=== PATIENT | female | born 1965 | race Caucasian/White ===

== ENCOUNTER 2024-10-16 20:17 | Emergency (ER) | payer SELFPAY ==
[~2024-10-16] VITALS: Ht 160 cm; Wt 104.0 kg
--- NOTE | 2024-10-16 20:29 | ED.PDOC ---
General HPI Comments 58 y.o female presents to the ED for a chief complaint of pelvic pain radiating to her flank region associated with nausea, vomiting, chills, fever, urgency and a generalized headache that started 2 days ago. Patient reports pain is sharp, worsened today with some alleviation after taking a [place] her friend gave her. at this time, post pain medication, patient's pain rate is at 4/10 but without was at a 9/10 on the pain scale. patient denies any hematuria, dysuria,bloody stool, vaginal bleeding or discharge. Time Seen by MD: 20:21 Reviewed notes: Nurses Notes, Medications, Allergies Allergies: Coded Allergies: NO KNOWN ALLERGIES (Unverified , 10/16/24) Information Source: Patient Mode of Arrival: Ambulatory Severity: Moderate Timing: Days (2) Duration: Since onset Onset: Spontaneous Symptoms: Urgency History of: None Location: (R) Flank Modifying factors: None associated signs and symptoms: Fever, Abdominal Pain, Nausea, Vomiting, Flank Pain Past Medical History PAST MEDICAL HISTORY: Denies Surgical History: , Tubal Ligation NUCLEAR MEDICAL TECHNOLOGIST History: No Pertinent NUCLEAR MEDICAL TECHNOLOGIST History Family History Family History: Family hx of DM, Family hx of Cancer, Family hx of heart damaris, Family hx of HTN Social History Smoker: Quit Less Than 1 Year, Cigarettes Alcohol: Occasionally Drugs: Marijuana Lives In: Home Constitutional: reports: chills, fever; denies: diaphoresis, fatigue, malaise, sweats, weakness, others EENTM: denies: blurred vision, double vision, ear bleeding, ear discharge, ear drainage, ear pain, ear ringing, eye pain, eye redness, hearing loss, mouth pain, mouth swelling, nasal discharge, nose bleeding, nose congestion, nose pain, photophobia, tearing, throat pain, throat swelling, voice changes, others Respiratory: denies: cough, hemoptysis, orthopnea, SOB at rest, shortness of breath, SOB with excertion, stridor, wheezing, others Cardiovascular: denies: chest pain, dizzy spells, diaphoresis, Dyspnea on exertion, edema, irregular heart beat, left arm pain, lightheadedness, palpitations, PND, syncope, others Gastrointestinal: reports: nausea, vomiting; denies: abdomen distended, abdominal pain, blood streaked bowels, constipated, diarrhea, dysphagia, diffic ulty swallowing, hematemesis, melena, poor appetite, poor fluid intake, rectal bleeding, rectal pain, others Genitourinary: reports: flank pain, pain, urgency; denies: abnormal vagina bleeding, burning, dyspareunia, dysuria, frequency, hematuria, incontinence, , vagina discharge, others Neurological: reports: headache; denies: dizziness, fainting, left sided numbness, left sided weakness, numbness, paresthesia, pre-existing deficit, right sided numbness, right sided weakness, seizure, speech problems, tingling, tremors, weakness, others Musculoskeletal: denies: back pain, gout, joint pain, joint swelling, muscle pain, muscle stiffness, neck pain, others Integumetry: denies: bruises, change in color, change in hair/nails, dryness, laceration, lesions, lumps, rash, wounds, others Allergic/Immunocompromised: denies: Difficulty Healing, Frequent Infections, Hives, Itching, others Hematologic/Lymphatic: denies: anemia, blood clots, easy bleeding, easy bruising, swollen glands, others Endocrine: denies: excessive hunger, excessive sweating, excessive thirst, excessive urination, flushing, intolerance to cold, intolerance to heat, unexplained weight gain, unexplained weight loss, others Psychiatric: denies: anxiety, bipolar disorder, depression, hopeless, panic disorder, schizophrenia, sleepless, suicidal, others All Other Systems: Reviewed and Negative Physical Exam General Appearance: Mild Distress HEENT: Normal ENT Inspection, Pharynx Normal, TMs Normal Neck: Full Range of Motion, Non-Tender, Normal, Normal Inspection Respiratory: Chest Non-Tender, Lungs Clear, No Accessory Muscle Use, No Respiratory Distress, Normal Breath Sounds Cardiovascular: No Edema, No JVD, No Murmur, No Gallop, Normal Peripheral Pulses, Regular Rate/Rhythm Breast Exam: Deferred Gastrointestinal: No Organomegaly, No Pulsatile Mass, Normal Bowel Sounds, Soft, Suprapubic, Tenderness Genitalia: Deferred Pelvic: Deferred Rectal: Deferred Extremities: No calf tenderness, Normal capillary refill, Normal inspection, No rmal range of motion, Non-tender, No pedal edema Musculoskeletal : Apperance: Normal Neurologic: Alert, 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 Was a procedure done?: No Differential Diagnosis Kidney stone (Female): Musculoskeletal pain, Pancreatitis, Pyelonephritis, Strain, Urolithiasis Urinary Problem (Female): Pyelonephritis, UTI X-Ray, Labs, Meds, VS Vital Signs Date Time Temp Pulse Resp B/P (MAP) Pulse Ox O2 Delivery O2 Flow Rate FiO2 10/16/24 20:57 98.1 125 20 142/85 (104) 95 98.1 Lab Test 10/16/24 20:57 10/16/24 00:00 Range/Units White Blood Count 10.4 4.4-10.8 10^3/uL Red Blood Count 4.71 4.0-5.20 10^6/uL Hemoglobin 13.8 12.2-16.2 g/dL Hematocrit 40.3 36.0-46.0 % Mean Corpuscular Volume 85.6 80.0-100.0 fL Mean Corpuscular Hemoglobin 29.3 28.0-32.0 pg Mean Corpuscular Hemoglobin Concent 34.2 32.0-36.0 g/dL Red Cell Distribution Width 13.6 11.8-14.3 % Platelet Count 273 140-450 10^3/uL Mean Platelet Volume 8.3 6.9-10.8 fL Neutrophils (%) (Auto) 91.7 H 37.0-80.0 % Lymphocytes (%) (Auto) 2.9 L 10.0-50.0 % Monocytes (%) (Auto) 2.4 0.0-12.0 % Eosinophils (%) (Auto) 2.8 0.0-7.0 % Basophils (%) (Auto) 0.2 0.0-2.0 % Neutrophils # (Auto) 9.6 H 1.6-8.6 10 ^3/uL Lymphocytes # (Auto) 0.3 L 0.4-5.4 10 ^3/uL Monocytes # (Auto) 0.2 0-1.3 10 ^3/uL Eosinophils # (Auto) 0.3 0-0.8 10 ^3/uL Basophils # (Auto) 0 0-0.2 10 ^3/uL Nucleated Red Blood Cells 0.0 % Sodium Level 136 136-145 mmol/L Potassium Level 3.8 3.5-5.1 mmol/L Chloride Level 101 98-107 mmol/L Carbon Dioxide Level 25 20-31 mmol/L Anion Gap 10 5-15 Blood Urea Nitrogen 10 9-23 mg/dL Creatinine 1.10 H 0.550-1.02 mg/dL Glomerular Filtration Rate Calc 59 >90 mL/min BUN/Creatinine Ratio 9.1 L 10.0-20.0 Serum Glucose 185 H 74-106 mg/dL Calcium Level 9.7 8.7-10.4 mg/dL Total Bilirubin 0.7 0.2-1.0 mg/dL Aspartate Amino Transferase (AST) 25 13-40 U/L Alanine Aminotransferase (ALT) 28 7-40 U/L Alkaline Phosphatase 84 46-116 U/L Total Protein 8.1 5.7-8.2 g/dL Albumin 4.2 3.2-4.8 g/dL Urine Color Pending Urine Clarity Pending Urine pH Pending Urine Specific [place] Pending Urine Protein Pending Urine Ketones Pending Urine Blood Pending Urine Nitrite Pending Urine Bilirubin Pending Urine Urobilinogen Pending Urine Leukocyte Esterase Pending Urine RBC Pending Urine Microscopic WBC Pending Urine Squamous Epithelial Cells Pending Urine Bacteria Pending Urine Glucose Pending CAT scan of the abdomen and pelvis is pending The patient's CBC and chemistry panel are within normal limits The urine test is pending The patient was being signed out to Dr. Barnes He will do the final disposition Images Reviewed?: Images reviewed and evaluated by me Time of 1ST Reevaluation: 20:25 Reevaluation 1ST: Unchanged Patient Education/Counseling: Diagnosis, Treatment, Prognosis Family Education/Counseling: No Family Present Departure 1 Departure Time of Disposition: 21:55 Impression: Primary Impression: Acute abdominal pain Disposition: 30 STILL A PATIENT Condition: Fair Critical Care Note Critical Care Time?: No Stability Stability form required: No I personally scribed for MOOK GLASGOW MD ([email or web address]) on 10/16/24 at 20:29. Electronically submitted by Laura Salinas ([facility]). MOOK GLASGOW MD Oct 16, 2024 20:29
[2024-10-16 21:25] LABS: Basophils # (auto) 0 10 ^3/uL (0-0.2); Basophils % (auto) 0.2 % (0.0-2.0); Eosinophils # (auto) 0.3 10 ^3/uL (0-0.8); Eosinophils % (auto) 2.8 % (0.0-7.0); Hematocrit 40.3 % (36.0-46.0); Hemoglobin 13.8 g/dL (12.2-16.2); Lymphocytes # (auto) 0.3 10 ^3/uL (0.4-5.4); Lymphocytes % (auto) 2.9 % (10.0-50.0); Mean Corpuscular Hemoglobin 29.3 pg (28.0-32.0); Mean Corpuscular Hgb Conc. 34.2 g/dL (32.0-36.0); Mean Corpuscular Volume 85.6 fL (80.0-100.0); Monocytes # (auto) 0.2 10 ^3/uL (0-1.3); Monocytes % (auto) 2.4 % (0.0-12.0); Neutrophils # (auto) 9.6 10 ^3/uL (1.6-8.6); Neutrophils % (auto) 91.7 % (37.0-80.0); Platelet Count (auto) 273 10^3/uL (140-450); Red Blood Cells 4.71 10^6/uL (4.0-5.20); Red Cell Distribution Width 13.6 % (11.8-14.3); White Blood Cell 10.4 10^3/uL (4.4-10.8)
[2024-10-16 21:43] LABS: Alanine Aminotransferase 28 U/L (7-40); Alkaline Phosphatase 84 U/L (46-116); Anion Gap 10 (5-15); Aspartate Aminotransferase 25 U/L (13-40); BUN/Creatinine Ratio 9.1 (10.0-20.0); Bilirubin, Total 0.7 mg/dL (0.2-1.0); Blood Urea Nitrogen 10 mg/dL (9-23); Calcium 9.7 mg/dL (8.7-10.4); Carbon Dioxide 25 mmol/L (20-31); Chloride 101 mmol/L (98-107); Potassium 3.8 mmol/L (3.5-5.1); Sodium 136 mmol/L (136-145); Total Protein 8.1 g/dL (5.7-8.2)
[2024-10-16 21:44] LABS: Glucose 185 mg/dL (74-106)
[2024-10-16 21:45] LABS: Albumin 4.2 g/dL (3.2-4.8)
[2024-10-16] MEDS: SODIUM CHLORIDE 0.9% 1,000 ML IVB ONE (22:04)
[2024-10-16 22:05] LABS: Urine Bacteria FEW /hpf (None Seen); Urine Blood Negative /uL (Negative); Urine Clarity Turbid (Clear); Urine Color Yellow (Yellow); Urine Protein, UAD TRACE (Negative); Urine Specific Gravity 1.019 (1.001-1.035); Urine Squamous Epithelial Cell FEW /hpf (<5); Urine Urobilinogen Normal (Negative); Urine WBC 213 /HPF (0-5)
--- NOTE | 2024-10-16 22:05 | DVH ---
CT SCAN ABDOMEN AND PELVIS WITHOUT CONTRAST CLINICAL HISTORY: Bilateral flank pain TECHNIQUE: Helical axial images are obtained from the lung bases through the pelvis without oral cont rast. No intravenous contrast was administered. Coronal and sagittal reformatted images were generate d from thin section reconstructions. One or more of the following radiation dose reduction techniques were used for this examination: automated exposure control, adjustment of the mA and/or kV according to patient size, use of iterative reconstruction technique. COMPARISON: None FINDINGS: LOWER THORAX: Imaged lung bases are grossly clear. ABDOMEN AND PELVIS: Evaluation of visceral and vascular structures is limited due to lack of contrast administration. As visualized, the unenhanced liver, spleen, pancreas and adrenals appear grossly unremarkable. No si zable, radiopaque cholelithiasis or biliary ductal dilatation. Mild right renal pelviectasis. No significant hydronephrosis. No sizable, obstructing urinary tract c alculi identified. No evidence of abdominal aortic aneurysm. No evidence of bowel obstruction. Normal caliber appendix. No free intraperitoneal air or fluid iden tified. Small fat containing umbilical hernia. No sizable bladder calculus. No destructive osseous lesions identified. IMPRESSION: No bowel obstruction, free intraperitoneal air/ fluid or sizable inflammatory collections identified on this noncontrast examination. Mild right renal pelviectasis. No sizable, obstructing nephrolithiasis. This is relatively nonspecifi c. Correlate to exclude UTI.
[2024-10-16 22:09] VITALS: TEMP 99.3; O2SAT 96
[2024-10-16] MEDS: ONDANSETRON HCL 4 MG/2 ML VIAL IV ONE (22:25)
[2024-10-16] MEDS: MORPHINE SULFATE 4 MG/ML SYR/VIAL IV ONE (22:25)
[2024-10-16] MEDS ORDERED: BACDST PO (22:52)
[2024-10-16 22:55] VITALS: BP 112/74; PULSE 74; RESP 19
[2024-10-16] MEDS: cefTRIAXone 1GM/50ML D5W 50 ML IV ONE (23:00)
== END 2024-10-17 00:38 | disposition home or self-care (01) ==
LOC: ER 20:17
DX: R10.2 Pelvic and perineal pain (principal); R11.2 Nausea with vomiting, unspecified; R50.9 Fever, unspecified; R51.9 Headache, unspecified; F12.90 Cannabis use, unspecified, uncomplicated; Z87.891 Personal history of nicotine dependence; Z98.51 Tubal ligation status; Z98.890 Other specified postprocedural states
CPT/HCPCS: 36415; 74176; 80053; 81001; 85025; 96361; 96365; 96375; 99285; J0696; J2270; J2405; J7030